=== PATIENT | male | born 1950 | race Caucasian/White ===

== ENCOUNTER 2017-08-26 16:06 | Emergency (ER) | payer OTHER, MEDICARE ==
[~2017-08-26] VITALS: Ht 190.5 cm; Wt 115.0 kg
[~2017-08-26 16:06] MED LIST: ALFU10TA2 PO; ALPR0.5T3 PO; AMIT10TA6 PO; AMLO10TA2 PO; ATOR20TA15 PO; BACL10TA PO; CARV6.252 PO; ENAL20TA PO; FLUO60TA PO; FURO20TA PO; HYDR-3580 PO; IPRAAER INH; IPRASOL INH; LORA10TA PO; LOSA50TA PO; MULTTAB67 PO; OMEP40CA2 PO; POTA10TA8 PO; RANI150C PO; VIAG100T PO
[2017-08-26 16:09] VITALS: BP 177/80; PULSE 94; RESP 13; TEMP 97.9; O2SAT 97
[2017-08-26] MEDS ORDERED: SODIUM CHLOR 0.9% 1000 ML INJ 1,000 ML IV SCH (16:38)
[2017-08-26 16:40] VITALS: RESP 17; O2SAT 99
[2017-08-26] MEDS ORDERED: TETANUS/DIPHTHERIA TOXOID ADULT 0.5 ML VIAL IM ONE (16:45)
[2017-08-26] MEDS ORDERED: LIDOCAINE HCL 1% 50 ML VIAL INFIL ONE (16:45)
[2017-08-26 17:20] LABS: AUTOMATED NEUTROPHIL # 6.8 TH/MM3 (1.8-7.7); BASOPHIL % 0.5 % (0.0-2.0); EOSINOPHIL # 0.4 TH/MM3 (0-0.4); EOSINOPHIL % 4.1 % (0.0-4.0); HEMATOCRIT 39.1 % (39.0-51.0); HEMO FLAGS DIFF FINAL; LYMPHOCYTE # 1.3 TH/MM3 (1.0-4.8); MEAN CELL VOLUME 80.1 FL (80.0-100.0); MEAN CORPUSCULAR HEMOGLOBIN 26.9 PG (27.0-34.0); MEAN CORPUSCULAR HGB CONC 33.6 % (32.0-36.0); MONO % 8.1 % (0.0-8.0); NEUT % 73.3 % (16.0-70.0); PLATELET COUNT 229 TH/MM3 (150-450); RED BLOOD COUNT 4.89 MIL/MM3 (4.50-5.90); RED CELL DISTRIBUTION WIDTH 14.1 % (11.6-17.2); WHITE BLOOD COUNT 9.3 TH/MM3 (4.0-11.0)
[2017-08-26 17:34] LABS: ANION GAP 9 MEQ/L (5-15); BICARBONATE 26.3 MEQ/L (21.0-32.0); BLOOD UREA NITROGEN 11 MG/DL (7-18); CHLORIDE 104 MEQ/L (98-107); GLOMERULAR FILTRATION RATE 71 ML/MIN (>89); POTASSIUM 3.3 MEQ/L (3.5-5.1); SODIUM (NA) 139 MEQ/L (136-145)
[2017-08-26 17:39] LABS: CREATINE KINASE 115 U/L (39-308)
--- NOTE | 2017-08-26 17:42 | PD ---
HPI Chief Complaint: Fall Time Seen by Provider: 16:21 Travel History International Travel<30 days: No Contact w/Intl Traveler<30days: No Traveled to known affect area: No History of Present Illness HPI 67-year-old male that presents to the ED for evaluation of fall. Patient is a little unclear but from what he tells me he possibly tripped over lower on his rash. Patient hit his head but he is not sure if he passed out. He does not believe so. He was able to get help from a neighbor and she needed assistance to get up. showed up and he had a lot of blood. He does have a cut to the left side of his face. Per patient and the family members he's been somewhat "groggy". He denies any blood thinner use. No chest pain. No arm pain other than the left wrist. He does have an abrasion to the left hand. He denies any hip pain. He does state having some right knee pain. Per family he was somewhat "wobbly "when he was walking but he was able to walks somewhat. He was brought here by private vehicle. He denies any blurry vision or double vision. He states that his pain especially on the left side of the face is 6 out of 10. No allergies to medication. Has not taken anything for this. History of heart disease and hypertension. PFSH Past Medical History Arthritis: Yes Asthma: No Atrial Fibrillation: Yes Anxiety: Yes Depression: Yes Heart Rhythm Problems: Yes (HX AFIB S/P ABLATION 10/2011) Cancer: Yes (SKIN CANCER NOSE) Cardiac Catheterization: Yes Cardiovascular Problems: Yes (CABG) High Cholesterol: Yes Chest Pain: No Congestive Heart Failure: Yes COPD: Yes Coronary Artery Disease: Yes Diabetes: No Diminished Hearing: No Endocrine: No Gastrointestinal Disorders: Yes (GERD, PEPTIC ULCERS, ESOPHAGEAL DILATION) GERD: Yes Genitourinary: Yes (ENLARGED PROSTATE) Hepatitis: No Hiatal Hernia: No Hypertension: Yes Immune Disorder: No Implanted Vascular Access Dvce: Yes Medical other: Yes ("CHOKING iSSUE") Musculoskeletal: Yes (HX LUMBAR NARROWING REQUIRING SURGERY, LEFT SHOULDER, ARTHRITIS) Neurologic: Yes (NEUROPATHY FEET) Psychiatric: Yes (DEPRESSION/ANXIETY) Reproductive: No Respiratory: Yes (COPD, HX PLEURAL EFFUSION) Migraines: Yes Sleep Apnea: Yes Thyroid Disease: No Ulcer: Yes Tetanus Vaccination: < 5 Years Influenza Vaccination: Yes PNEUMOCCOCAL Vaccine (Year): 2 Past Surgical History Abdominal Surgery: No AICD: No Body Medical Devices: CHEST FROM RIS sternal plate implants in right shoulder Cardiac Surgery: Yes (CABGX2, CARDIOVERSION OCT, 2011) Coronary Artery Bypass Graft: Yes (2012) Ear Surgery: No Endocrine Surgery: No Genitourinary Surgery: No Gynecologic Surgery: No Joint Replacement: Yes (TOTAL RIGHT HIP,TOTAL LEFT KNEE) Oral Surgery: Yes (T&A) Pacemaker: No Thoracic Surgery: No Other Surgery: Yes (SINUS REPAIR, CANCER REMOVED FROM NOSE) Social History Alcohol Use: Yes (occ) Tobacco Use: No (quit) Substance Use: No Allergies-Medications (Allergen,Severity, Reaction): Coded Allergies: No Known Allergies (Unverified , 08/26/17) Reported Meds & Prescriptions Reported Meds & Active Scripts Active Bactroban Topical (Mupirocin) 22 Gm Cream 1 Applic TOPICAL BID Diclofenac Sodium DR (Diclofenac Sodium) 75 Mg Tabdr 75 Mg PO BID PRN Lortab (Hydrocodone-Acetaminophen) 7.5-325 Mg Tab 1 Tab PO Q6H PRN Hydrocodone-Acetaminophen 7.5-325 mg Tab 1 Tab PO Q4H PRN Reported Duoneb (Ipratropium-Albuterol Neb) 0.5-2.5 Mg/3 Ml Neb 1 Nebule INH DIRECTED PRN Combivent Respimat Inh (Ipratropium-Albuterol Inh) 20-100 Jail/Act Aero 1 Puff INH DIRECTED PRN Multiple Vitamin 1 Tab 1 Tab PO DAILY Losartan (Losartan Potassium) 50 Mg Tab 50 Mg PO BID Carvedilol 6.25 Mg Tab 3.125 Mg PO BID Alprazolam 0.5 Mg Tab 0.5 Mg PO HS Omeprazole 40 Mg Cap 40 Mg PO AC DINNER Amitriptyline (Amitriptyline HCl) 10 Mg Tab 10 Mg PO HS Alfuzosin ER 24 HR 10 Mg Tab 10 Mg PO DAILY Fluoxetine (Fluoxetine HCl) 60 Mg Tab 60 Mg PO DAILY Furosemide 20 Mg Tab 20 Mg PO BID Ranitidine (Ranitidine HCl) 150 Mg Cap 150 Mg PO HS Loratadine 10 Mg Tab 10 Mg PO DAILY Enalapril (Enalapril Maleate) 20 Mg Tab 40 Mg PO BID Atorvastatin (Atorvastatin Calcium) 20 Mg Tab 20 Mg PO HS Amlodipine (Amlodipine Besylate) 10 Mg Tab 10 Mg PO DAILY Viagra (Sildenafil Citrate) 100 Mg Tab 100 Mg PO DAILY PRN Review of Systems Except as stated in HPI: all other systems reviewed are Neg Physical Exam Narrative GENERAL: SKIN: Warm and dry. Patient has a superficial 2 cm laceration to the left forehead just lateral to the eyebrow. HEAD: Atraumatic. Normocephalic. EYES: Pupils equal and round 4 mm reactive to light and accommodation. No scleral icterus. No injection or drainage. ENT: No nasal bleeding or discharge. Mucous membranes pink and moist. Tongue is midline. No uvula deviation. NECK: Trachea midline. No JVD. CARDIOVASCULAR: Regular rate and rhythm. RESPIRATORY: No accessory muscle use. Clear to auscultation. Breath sounds equal bilaterally. GASTROINTESTINAL: Abdomen soft, non-tender, nondistended. Hepatic and splenic margins not palpable. MUSCULOSKELETAL: Extremities without clubbing, cyanosis, or edema. No obvious deformities. Full range of motion of the upper and lower extremities bilaterally. Patient does have a superficial abrasion to the dorsal aspect of the left hand with some bruising to the wrist and pain with range of motion of the wrist as well as slight abrasion and bruise noted to the right knee. Able to move the knee and the entire lower extremity with no pain. Pupils pulses bilaterally. No obvious hip pain. No lumbar, thoracic, cervical spine tenderness to palpation. NEUROLOGICAL: Awake and alert and oriented 4. No obvious cranial nerve deficits. Motor grossly within normal limits. Five out of 5 muscle strength in the arms and legs. Normal speech. PSYCHIATRIC: Appropriate mood and affect; insight and judgment normal. Data Data Last Documented VS Vital Signs Date Time Temp Pulse Resp B/P (MAP) Pulse Ox O2 Delivery O2 Flow Rate FiO2 08/26/17 16:40 17 99 Room Air 08/26/17 16:09 97.9 94 Orders Orders Electrocardiogram (08/26/17 16:31) Complete Blood Count With Diff (08/26/17 16:31) Basic Metabolic Panel (Bmp) (08/26/17 16:31) Ckmb (Isoenzyme) Profile (08/26/17 16:31) Troponin I (08/26/17 16:31) Urinalysis - C+S If Indicated (08/26/17 16:31) Magnesium (Mg) (08/26/17 16:31) Chest, Single Ap (08/26/17 16:31) Ct Brain W/O Iv Contrast(Rout) (08/26/17 16:31) Iv Access Insert/Monitor (08/26/17 16:31) Ecg Monitoring (08/26/17 16:31) Oximetry (08/26/17 16:31) Wound Care (08/26/17 16:31) Ct Cerv Spine W/O Contrast (08/26/17 16:31) Ct Facial Bones W/O Iv Cont (08/26/17 16:31) Tetanus/Diphtheria Tox Adult (Tetanus/Di (08/26/17 16:45) Wound Care (08/26/17 16:31) Lidocaine 1% Inj (50 Ml) (Xylocaine 1% I (08/26/17 16:45) Knee, Complete (4vws) (08/26/17 ) Pelvis, Ap Only (Routine) (08/26/17 ) Sodium Chlor 0.9% 1000 Ml Inj (Ns 1000 M (08/26/17 16:38) Wrist, Complete ([id number]) (08/26/17 ) Coag Profile (08/26/17 17:37) CKMB (08/26/17 16:50) CKMB% (08/26/17 16:50) Ketorolac Inj (Toradol Inj) (08/26/17 18:30) Morphine Inj (Morphine Inj) (08/26/17 18:30) Ondansetron Inj (Zofran Inj) (08/26/17 18:30) Labs Laboratory Tests Test 08/26/17 16:50 08/26/17 18:00 White Blood Count 9.3 TH/MM3 Red Blood Count 4.89 MIL/MM3 Hemoglobin 13.1 GM/DL Hematocrit 39.1 % Mean Corpuscular Volume 80.1 FL Mean Corpuscular Hemoglobin 26.9 PG Mean Corpuscular Hemoglobin Concent 33.6 % Red Cell Distribution Width 14.1 % Platelet Count 229 TH/MM3 Mean Platelet Volume 8.0 FL Neutrophils (%) (Auto) 73.3 % Lymphocytes (%) (Auto) 14.0 % Monocytes (%) (Auto) 8.1 % Eosinophils (%) (Auto) 4.1 % Basophils (%) (Auto) 0.5 % Neutrophils # (Auto) 6.8 TH/MM3 Lymphocytes # (Auto) 1.3 TH/MM3 Monocytes # (Auto) 0.8 TH/MM3 Eosinophils # (Auto) 0.4 TH/MM3 Basophils # (Auto) 0.0 TH/MM3 CBC Comment DIFF FINAL Differential Comment Blood Urea Nitrogen 11 MG/DL Creatinine 1.04 MG/DL Random Glucose 180 MG/DL Calcium Level 8.1 MG/DL Magnesium Level 2.0 MG/DL Sodium Level 139 MEQ/L Potassium Level 3.3 MEQ/L Chloride Level 104 MEQ/L Carbon Dioxide Level 26.3 MEQ/L Anion Gap 9 MEQ/L Estimat Glomerular Filtration Rate 71 ML/MIN Total Creatine Kinase 115 U/L Creatine Kinase MB 1.7 NG/ML Troponin I LESS THAN 0.02 NG/ML MDM Medical Decision Making Medical Screen Exam Complete: Yes Emergency Medical Condition: Yes Medical Record Reviewed: Yes Interpretation(s) CBC & BMP Diagram 08/26/17 16:50 Calcium Level 8.1 L, Magnesium Level 2.[address] 08/26/17 1631 Signed Impressions: Service Date/Time: Saturday, August 26, 2017 17:44 - CONCLUSION: 1. Old lacunar infarct in the right basal ganglia. No acute intracranial abnormality identified. Balaji Jeffries MD Chest X-Ray 08/26/17 1631 Signed Impressions: Service Date/Time: Saturday, August 26, 2017 17:09 - CONCLUSION: Chronic appearing interstitial changes. Stable compared to prior exam. Balaji Jeffries MD Pelvis X-Ray 08/26/17 0000 Signed Impressions: Service Date/Time: Saturday, August 26, 2017 17:15 - CONCLUSION: Intact pelvis. Boris Flores MD Knee X-Ray 08/26/17 0000 Signed Impressions: Service Date/Time: Saturday, August 26, 2017 17:11 - CONCLUSION: No fracture or other acute abnormality seen of the right knee. Chronic findings as above. Boris Flores MD CT face showed no acute bony injury CT cervical showed no acute bony injury Differential Diagnosis Fall versus syncope versus head injury versus laceration versus fracture versus ICH versus concussion Narrative Course 67-year-old male that presents to the ED for evaluation of fall. Patient was properly examined and was found to have signs and symptoms consistent with fall. Labs and imaging were ordered. I do recommend suturing for the laceration to the left forehead. Patient agrees with this plan. Please refer to my note. Labs and imaging showed no sign of acute disease. Patient was reassured. Case was discussed in my attending Dr. Justin who evaluated the patient with me and agrees with plan. Patient likely has a concussion. Patient will be given pain management as well as antibiotic ointment. Told to get sutures removed in 7 days. Close follow with PCP. He was told things to look out for and if they do happened to come back to the ED immediately. He agrees and understands. See ED worsening symptoms. Follow with PCP. Procedures Procedure Narrative LACERATION LOCATION: left forehead LENGTH: 2 cm NUMBER OF STITCHES/ANGELIQUE: 5 sutures REPAIR: The area of the laceration was prepped with Betadine and sterilely draped. The laceration was infiltrated with 1% Xylocaine. The wound was copiously irrigated and explored without evidence of foreign body, tendon injury or neurovascular injury. The wound was closed using 5-0 Ethilone. This was a 1 layer repair. A sterile dressing was applied. The patient was advised to keep the dressing clean and dry. Patient tolerated the procedure well. Diagnosis Primary Impression: Head injury Qualified Codes: S09.90XA - Unspecified injury of head, initial encounter Additional Impressions: Laceration of head Qualified Codes: S01.112A - Laceration without foreign body of left eyelid and periocular area, initial encounter Fall Qualified Codes: W19.XXXA - Unspecified fall, initial encounter Skin abrasion Multiple contusions Patient Instructions: General Instructions, Narcotic given in the ED Additional Instructions: Wound care daily with soap and water. You can apply bandaid if needed. Neosporyn or OTC antibiotic ointment to area as needed twice a day for at least 2 weeks to help with scarring and prevent infection. Meoderma OTC for scarring if needed. Avoid sun exposure for 2 months as the sun could make scar darker and more noticeable. Get sutures removed in 5-7 days. See ED if worst. Take medications as prescribed. Follow-up with PCP. See ED for any worsening symptoms. Do not drink or drive while taking pain medication. Apply ice or heat as needed for pain Med/Other Pt SpecificInfo: Prescription(s) given Scripts Mupirocin Topical (Bactroban Topical) 22 Gm Cream 1 APPLIC TOPICAL BID for Mgmt Bacterial Infection, #1 TUBE 0 Refills Prov: Eulogio Justin MD 08/26/[address] (Diclofenac Sodium DR) 75 Mg Tabdr 75 MG PO BID Y for PAIN SCALE 1 TO 10, #30 TAB 0 Refills Prov: Eulogio Justin MD 08/26/17 Hydrocodone-Acetaminophen (Lortab) 7.5-325 Mg Tab 1 TAB PO Q6H Y for PAIN, #15 TAB 0 Refills Prov: Eulogio Justin MD 08/26/17 Disposition: 01 DISCHARGE HOME Condition: Chris Guerrero Aug 26, 2017 17:42
[2017-08-26 17:50] LABS: CKMB 1.7 NG/ML (0.5-3.6)
--- NOTE | 2017-08-26 17:53 | RADRPT ---
EXAM DATE/TIME: 08/26/2017 17:09 [facility] COMPARISON: SHOULDER LEFT LTD (2VWS), October 25, 2016, 11:36. INDICATIONS : Shortness of breath and right sided pain from fall. MEDICAL HISTORY : None. SURGICAL HISTORY : None. ENCOUNTER: Initial ACUITY: 1 day PAIN SCORE: 2/10 LOCATION: Right chest FINDINGS: The heart is at the limits of normal in size. The patient is post median sternotomy. There chronic in terstitial changes within the pulmonary parenchyma. The lungs are otherwise clear. There are bilateral shoulder arthroplasties. The bony structures are otherwise intact. CONCLUSION: Chronic appearing interstitial changes. Stable compared to prior exam. Balaji Jeffries MD on August 26, 2017 at 17:50 Board Certified Radiologist. This report was verified electronically.
--- NOTE | 2017-08-26 18:01 | RADRPT ---
EXAM DATE/TIME: 08/26/2017 17:11 [facility] COMPARISON: No previous studies available for comparison. INDICATIONS : Pain from fall. MEDICAL HISTORY : None. SURGICAL HISTORY : Bursa removal. ENCOUNTER: Initial ACUITY: 1 day PAIN SCORE: 5/10 LOCATION: Right knee. FINDINGS: No fracture or subluxation seen of the right knee. No significant joint effusion. Moderate tricompartment osteoarthritis. Subcentimeter osteochondral bodies are seen posterior to the notch. I believe there is an approximately 1 cm osteochondroma medially of the distal femoral metaphy sis. There is severe enthesopathic changes of the extensor mechanism. There is also osteoarthritis of the proximal tib-fib joint. There is an area of chronic bony bridging between the proximal fibula an d tibia that may be posttraumatic. CONCLUSION: No fracture or other acute abnormality seen of the right knee. Chronic findings as above. Boris Flores MD on August 26, 2017 at 17:58 Board Certified Radiologist. This report was verified electronically.
--- NOTE | 2017-08-26 18:02 | RADRPT ---
EXAM DATE/TIME: 08/26/2017 17:15 [facility] COMPARISON: No previous studies available for comparison. INDICATIONS : Pain from fall. MEDICAL HISTORY : None. SURGICAL HISTORY : Hip replacement, right. ENCOUNTER: Initial ACUITY: 1 day PAIN SCORE: 2/10 LOCATION: Right hip. FINDINGS: The bony pelvis is intact and has normal morphology. No subluxation of either hip. Previous arthropla sty on the right. There is moderate osteoarthritis on the left. CONCLUSION: Intact pelvis. Boris Flores MD on August 26, 2017 at 18:00 Board Certified Radiologist. This report was verified electronically.
--- NOTE | 2017-08-26 18:03 | RADRPT ---
EXAM DATE/TIME: 08/26/2017 17:20 [facility] COMPARISON: No previous studies available for comparison. INDICATIONS : Pain from fall. MEDICAL HISTORY : None. SURGICAL HISTORY : None. ENCOUNTER: Initial ACUITY: 1 day PAIN SCORE: 4/10 LOCATION: Left wrist. FINDINGS: No acute fracture or subluxation seen of the left wrist. 5 mm chronic ossific fragments seen dorsal to the carpus, probably related to old trauma of the triqu etrum. There is mild to moderate radiocarpal, triscaphe and first carpometacarpal osteoarthritis. CONCLUSION: No acute fracture or other acute abnormality of the left wrist. Chronic findings as above. Boris Flores MD on August 26, 2017 at 18:01 Board Certified Radiologist. This report was verified electronically.
--- NOTE | 2017-08-26 18:03 | RADRPT ---
EXAM DATE/TIME: 08/26/2017 17:44 [facility] COMPARISON: CT BRAIN W/O CONTRAST, November 19, 2014, 13:44. INDICATIONS : Fall laceration to head. RADIATION DOSE: 37.71 CTDIvol (mGy) MEDICAL HISTORY : Cardiovascular disease. Congestive heart failure. Hypertension.Afib; skin cancer SURGICAL HISTORY : CABG ENCOUNTER: Initial ACUITY: 1 day PAIN SCALE: 7/10 LOCATION: Left cranial TECHNIQUE: Multiple contiguous axial images were obtained of the head. Using automated exposure control and adj ustment of the mA and/or kV according to patient size, radiation dose was kept as low as reasonably a chievable to obtain optimal diagnostic quality images. DICOM format image data is available electro nically for review and comparison. FINDINGS: CEREBRUM: There is a punctate old lacunar infarct in the right basal ganglia. This has been stable since prior exam dated 11/19/14. No acute intracranial hemorrhage is seen. No mass lesion is identified. No extra -axial hemorrhage is present. The ventricles are normal in size and configuration. POSTERIOR FOSSA: The cerebellum and brainstem are intact. The 4th ventricle is midline. The cerebellopontine angle i s unremarkable. EXTRACRANIAL: The visualized portion of the orbits is intact. SKULL: The calvaria is intact. No evidence of skull fracture. CONCLUSION: 1. Old lacunar infarct in the right basal ganglia. No acute intracranial abnormality identified. Balaji Jeffries MD on August 26, 2017 at 18:00 Board Certified Radiologist. This report was verified electronically.
--- NOTE | 2017-08-26 18:10 | RADRPT ---
EXAM DATE/TIME: 08/26/2017 17:44 [facility] COMPARISON: CT BRAIN W/O CONTRAST, November 19, 2014, 13:44. INDICATIONS : Fall. RADIATION DOSE: 21.13 CTDIvol (mGy) MEDICAL HISTORY : Cardiovascular disease. Congestive heart failure. Afib, skin cancer SURGICAL HISTORY : CABG ENCOUNTER: Initial ACUITY: 1 day PAIN SCALE: 7/10 LOCATION: neck TECHNIQUE: Volumetric scanning of the cervical spine was performed. Multiplanar reconstructions in the sagittal, coronal and oblique axial planes were performed. Using automated exposure control and adjustment o f the mA and/or kV according to patient size, radiation dose was kept as low as reasonably achievable to obtain optimal diagnostic quality images. DICOM format image data is available electronically f or review and comparison. FINDINGS: Thin section axial imaging of the cervical spine was performed. Sagittal and coronal imaging demonstrate adequate alignment of the vertebral bodies. There are modera te degenerative changes throughout the cervical spine. Note is made of ossification of the posterior longitudinal ligament extending from C2 down to the superior endplate of C5. No acute fracture is edward ntified. C1/2: There are mild degenerative changes in the atlantodens joint. No fracture is seen. C2/3: There is ossification of the posterior longitudinal ligament. This abuts the ventral thecal sac and c an be seen touching the ventral aspect of the cord. There is mild flattening of the cord. The foramin a are adequate. C3/4: There is ossification of the posterior longitudinal ligament which effaces the ventral thecal sac and abuts the ventral aspect of the cord. There is mild flattening of the ventral aspect of the cord. C4/5: The thecal space is adequate. The foramina are adequate. There is mild facet arthritis bilaterally. C5/6: There is a degenerated disc with mild osteophytic ridging. There is facet arthritis bilaterally. The thecal space and foramina are adequate. C6/7: There is a severely degenerated disc. There is diffuse osteophytic ridging from the vertebral endplat es. This effaces the ventral thecal sac and abuts the ventral aspect of the cord. There is mild maurice ening of the central aspect of the cord. The foramina appear adequate. C7/T1: There is a degenerated disc. The thecal space and foramina appear adequate. CONCLUSION: 1. Advanced degenerative changes throughout the cervical spine as above. No acute fracture identified . 2. Note is made of ossification of the posterior longitudinal ligament from C2 down to the superior e ndplate of C4. Balaji Jeffries MD on August 26, 2017 at 18:02 Board Certified Radiologist. This report was verified electronically.
--- NOTE | 2017-08-26 18:12 | RADRPT ---
EXAM DATE/TIME: 08/26/2017 17:44 [facility] COMPARISON: CT BRAIN W/O CONTRAST, November 19, 2014, 13:44. INDICATIONS : Fall. RADIATION DOSE: 62.34 CTDIvol (mGy) MEDICAL HISTORY : Cardiovascular disease. Congestive heart failure. afib, skin cancer SURGICAL HISTORY : CABG ENCOUNTER: Initial ACUITY: 1 day PAIN SCORE: 7/10 LOCATION: Left cranial TECHNIQUE: Volumetric scanning of the facial bones was performed. Using automated exposure control and adjustme nt of the mA and/or kV according to patient size, radiation dose was kept as low as reasonably achiev able to obtain optimal diagnostic quality images. DICOM format image data is available electronicall y for review and comparison. FINDINGS: ORBITS: The orbital and infraorbital osseous structures are intact. The retroconal structures have a normal configuration. No radiopaque foreign bodies are seen. NASAL BONE: The nasal bone and maxillary spine are intact ZYGOMATIC ARCHES: Symmetric without evidence of fracture. SINUSES: The maxillary, ethmoid and frontal sinuses are intact. No air-fluid levels seen. NASAL CAVITY: The nasal septum is intact and midline. The lacrimal ducts are intact. SOFT TISSUES: No radiopaque foreign bodies seen. No soft-tissue swelling is seen. INTRACRANIAL: No intracranial air seen. CRIBIFORM PLATE: Grossly intact. CONCLUSION: 1. There is gas within the soft tissues along the lateral margin of the left orbit. No acute fracture is identified. Balaji Jeffries MD on August 26, 2017 at 18:08 Board Certified Radiologist. This report was verified electronically.
[2017-08-26] MEDS ORDERED: ONDANSETRON HCL 4 MG/2 ML VIAL IV PUSH ONE (18:30)
[2017-08-26] MEDS ORDERED: MORPHINE SULFATE 4 MG/ML INJ IV PUSH ONE (18:30)
[2017-08-26] MEDS ORDERED: KETOROLAC TROMETHAMINE 30 MG/ML (IVP) VIAL IV PUSH ONE (18:30)
[2017-08-26] MEDS ORDERED: HYDR-3534 PO (18:35)
[2017-08-26] MEDS ORDERED: DICL75TA PO (18:35)
[2017-08-26] MEDS ORDERED: MUPI2%T TOPICAL (18:35)
[2017-08-26 18:46] VITALS: RESP 17
[2017-08-26 18:56] LABS: APTT (PATIENT) 24.2 SEC (24.3-30.1); PROTHROMBIN TIME - PATIENT 10.7 SEC (9.8-11.6)
[2017-08-26 19:00] VITALS: BP 152/77; TEMP 97.9
[2017-08-26 19:49] LABS: BLOOD, URINE NEG (NEG); COMMENT (UR) CULT NOT INDICATED; CULTURE IF INDICATED CULT NOT INDICATED; GLUCOSE,URINE 150 mg/dL (NEG); HYALINE CAST, URINE 1 /lpf (RARE); KETONE, URINE NEG (NEG); NITRITE,URINE NEG (NEG); PH, URINE 6.5 (5.0-8.5); URINE COLOR YELLOW (YELLW/STRAW)
--- NOTE | 2017-08-26 21:35 | EKG ---
Date Performed: 08/26/2017 Time Performed: 16:48:32 PTAGE: 67 years EKG: Sinus rhythm NONSPECIFIC ST & T-WAVE ABNORMALITY BORDERLINE ECG PREVIOUS TRACING : 10/08/2016 09.52 No significant change from previous tracing noted. DOCTOR: Con Purvis Interpretating Date/Time 08/26/2017 21:32:51
== END 2017-08-26 19:00 | disposition home or self-care (01) ==
LOC: NEPC 16:06
DX: S09.90XA Unspecified injury of head, initial encounter (principal); S01.112A Laceration without foreign body of left eyelid and periocular area, initial encounter; S60.512A Abrasion of left hand, initial encounter; S60.212A Contusion of left wrist, initial encounter; S80.01XA Contusion of right knee, initial encounter; I10 Essential (primary) hypertension; E78.00 Pure hypercholesterolemia, unspecified; R94.31 Abnormal electrocardiogram [ECG] [EKG]; W01.0XXA Fall on same level from slipping, tripping and stumbling without subsequent striking against object, initial encounter; Z23 Encounter for immunization; Z87.39 Personal history of other diseases of the musculoskeletal system and connective tissue; Z86.79 Personal history of other diseases of the circulatory system; Z86.59 Personal history of other mental and behavioral disorders; Z85.828 Personal history of other malignant neoplasm of skin; Z87.09 Personal history of other diseases of the respiratory system; Z87.19 Personal history of other diseases of the digestive system; Z87.438 Personal history of other diseases of male genital organs; Z86.69 Personal history of other diseases of the nervous system and sense organs
CPT/HCPCS: 12011; 70450; 70486; 71010; 72125; 72170; 73110; 73564; 80048; 81001; 82550; 82552; 83735; 84484; 85025; 85610; 85730; 93005; 96361; 96374; 96375; 99285; J1885; J2270; J2405; J7030

== ENCOUNTER 2017-09-02 12:57 | Emergency (ER) | payer OTHER, MEDICARE ==
[~2017-09-02] VITALS: Ht 190.5 cm; Wt 118.0 kg
[~2017-09-02 12:57] MED LIST changes: -BACL10TA PO; +DICL75TA PO; +HYDR-3534 PO; +MUPI2%T TOPICAL; -POTA10TA8 PO
[2017-09-02 13:01] VITALS: BP 184/87; PULSE 68; RESP 14; TEMP 97.9; O2SAT 96
--- NOTE | 2017-09-02 13:07 | PD ---
HPI Chief Complaint: Wound/Suture/Staple Re-Check Time Seen by Provider: 13:07 Travel History International Travel<30 days: No Contact w/Intl Traveler<30days: No Traveled to known affect area: No History of Present Illness HPI Patient here for suture removal from left face laceration. Patient states he was here one week ago. He has no complaints. He has no known drug allergies. PFSH Past Medical History Arthritis: Yes Asthma: No Atrial Fibrillation: Yes Anxiety: Yes Depression: Yes Heart Rhythm Problems: Yes (HX AFIB S/P ABLATION 10/2011) Cancer: Yes (SKIN CANCER NOSE) Cardiac Catheterization: Yes Cardiovascular Problems: Yes (CABG) High Cholesterol: Yes Chest Pain: No Congestive Heart Failure: Yes COPD: Yes Coronary Artery Disease: Yes Diabetes: No Diminished Hearing: No Endocrine: No Gastrointestinal Disorders: Yes (GERD, PEPTIC ULCERS, ESOPHAGEAL DILATION) GERD: Yes Genitourinary: Yes (ENLARGED PROSTATE) Hepatitis: No Hiatal Hernia: No Hypertension: Yes Immune Disorder: No Implanted Vascular Access Dvce: Yes Musculoskeletal: Yes (HX LUMBAR NARROWING REQUIRING SURGERY, LEFT SHOULDER, ARTHRITIS) Neurologic: Yes (NEUROPATHY FEET) Psychiatric: Yes (DEPRESSION/ANXIETY) Reproductive: No Respiratory: Yes (COPD, HX PLEURAL EFFUSION) Migraines: Yes Sleep Apnea: Yes Thyroid Disease: No Ulcer: Yes PNEUMOCCOCAL Vaccine (Year): 2 Past Surgical History Abdominal Surgery: No AICD: No Body Medical Devices: CHEST FROM [facility] sternal plate implants in right shoulder Cardiac Surgery: Yes (CABGX2, CARDIOVERSION OCT, 2011) Coronary Artery Bypass Graft: Yes (2012) Ear Surgery: No Endocrine Surgery: No Genitourinary Surgery: No Gynecologic Surgery: No Joint Replacement: Yes (TOTAL RIGHT HIP,TOTAL LEFT KNEE) Oral Surgery: Yes (T&A) Pacemaker: No Thoracic Surgery: No Other Surgery: Yes (SINUS REPAIR, CANCER REMOVED FROM NOSE) Social History Alcohol Use: Yes (occ) Tobacco Use: No (quit) Substance Use: No Allergies-Medications (Allergen,Severity, Reaction): Coded Allergies: No Known Allergies (Unverified , 09/02/17) Reported Meds & Prescriptions Reported Meds & Active Scripts Active Bactroban Topical (Mupirocin) 22 Gm Cream 1 Applic TOPICAL BID Diclofenac Sodium DR (Diclofenac Sodium) 75 Mg Tabdr 75 Mg PO BID PRN Lortab (Hydrocodone-Acetaminophen) 7.5-325 Mg Tab 1 Tab PO Q6H PRN Hydrocodone-Acetaminophen 7.5-325 mg Tab 1 Tab PO Q4H PRN Reported Duoneb (Ipratropium-Albuterol Neb) 0.5-2.5 Mg/3 Ml Neb 1 Nebule INH DIRECTED PRN Combivent Respimat Inh (Ipratropium-Albuterol Inh) 20-100 Fdc/Act Aero 1 Puff INH DIRECTED PRN Multiple Vitamin 1 Tab 1 Tab PO DAILY Losartan (Losartan Potassium) 50 Mg Tab 50 Mg PO BID Carvedilol 6.25 Mg Tab 3.125 Mg PO BID Alprazolam 0.5 Mg Tab 0.5 Mg PO HS Omeprazole 40 Mg Cap 40 Mg PO AC DINNER Amitriptyline (Amitriptyline HCl) 10 Mg Tab 10 Mg PO HS Alfuzosin ER 24 HR 10 Mg Tab 10 Mg PO DAILY Fluoxetine (Fluoxetine HCl) 60 Mg Tab 60 Mg PO DAILY Furosemide 20 Mg Tab 20 Mg PO BID Ranitidine (Ranitidine HCl) 150 Mg Cap 150 Mg PO HS Loratadine 10 Mg Tab 10 Mg PO DAILY Enalapril (Enalapril Maleate) 20 Mg Tab 40 Mg PO BID Atorvastatin (Atorvastatin Calcium) 20 Mg Tab 20 Mg PO HS Amlodipine (Amlodipine Besylate) 10 Mg Tab 10 Mg PO DAILY Viagra (Sildenafil Citrate) 100 Mg Tab 100 Mg PO DAILY PRN Review of Systems Except as stated in HPI: all other systems reviewed are Neg General / Constitutional: No: Fever Eyes: No: Visual changes HENT: No: Headaches Cardiovascular: No: Chest Pain or Discomfort Respiratory: No: Shortness of Breath Gastrointestinal: No: Abdominal Pain Genitourinary: No: Dysuria Musculoskeletal: No: Pain Skin: No Rash Neurologic: No: Weakness Psychiatric: No: Depression Endocrine: No: Polydipsia Hematologic/Lymphatic: No: Easy Bruising Physical Exam Narrative GENERAL: Patient appears in no acute distress. SKIN: Warm and dry. Patient has a well-healed laceration to the left lateral forehead. There is no sign of wound dehiscence or cellulitis. [address] HEAD: Atraumatic. Normocephalic. EYES: Pupils equal and round. No scleral icterus. No injection or drainage. ENT: No nasal bleeding or discharge. Mucous membranes pink and moist. NECK: Trachea midline. No JVD. CARDIOVASCULAR: Regular rate and rhythm. RESPIRATORY: No accessory muscle use. MUSCULOSKELETAL: Extremities without clubbing, cyanosis, or edema. No obvious deformities. NEUROLOGICAL: Awake and alert. No obvious cranial nerve deficits. Motor grossly within normal limits. Five out of 5 muscle strength in the arms and legs. Normal speech. PSYCHIATRIC: Appropriate mood and affect; insight and judgment normal. Data Data Last Documented VS Vital Signs Date Time Temp Pulse Resp B/P (MAP) Pulse Ox O2 Delivery O2 Flow Rate FiO2 09/02/17 13:01 97.9 68 14 184/87 (119) 96 MDM Medical Decision Making Medical Screen Exam Complete: Yes Emergency Medical Condition: Yes Differential Diagnosis Fall. Laceration. Suture removal. Narrative Course Suture removal without difficulty. No further medical treatment warranted. Follow with primary care provider as needed. Diagnosis Primary Impression: Encounter for removal of sutures Referrals: [facility] Patient Instructions: General Instructions Additional Instructions: Suture removal without difficulty. No further medical treatment warranted. Follow with primary care provider as needed. Med/Other Pt SpecificInfo: No Change to Meds Disposition: 01 DISCHARGE HOME Condition: Stable Adrian Pierre Sep 02, 2017 13:07
== END 2017-09-02 13:21 | disposition home or self-care (01) ==
LOC: NEPK 12:57
DX: Z48.02 Encounter for removal of sutures (principal)
CPT/HCPCS: 99281

== ENCOUNTER 2018-04-30 18:52 | Emergency (ER) | payer OTHER ==
[~2018-04-30] VITALS: Ht 190.5 cm; Wt 115.5 kg
[2018-04-30 19:30] VITALS: BP 169/80; PULSE 64; RESP 20; TEMP 98.2; O2SAT 97
[2018-04-30] MEDS ORDERED: SODIUM CHLOR 0.9% 1000 ML INJ 1,000 ML IV SCH (20:15)
[2018-04-30] MEDS ORDERED: METOCLOPRAMIDE HCL 10 MG/2 ML VIAL IV PUSH ONE (20:15)
[2018-04-30] MEDS ORDERED: MORPHINE SULFATE 4 MG/ML INJ IV PUSH ONE (20:15)
[2018-04-30] MEDS ORDERED: ceFAZolin 2 GM PREMIX 50 ML IV ONE (20:15)
--- NOTE | 2018-04-30 20:18 | PD ---
HPI Chief Complaint: Fall Time Seen by Provider: 19:55 Travel History International Travel<30 days: No Contact w/Intl Traveler<30days: No Traveled to known affect area: No History of Present Illness HPI The patient is a 68 year old male who presents to the [facility] emergency department with a history of losing his balance while playing basketball prior to arrival, striking his face and right hand. He reports that he was playing basketball on a driveway that was uneven. The patient denies having any loss of consciousness. The patient reports having pain in his right cheek. He is unsure whether he has any neck pain. He reports that he has a history of arthritis. He reports that the pain in his right hand overrides any other pain that he is experiencing in any other location. He is right-hand dominant. The patient denies having any numbness or tingling to his extremities. He denies having any weakness of his extremities. He denies having any chest pain, chest pressure, or shortness of breath. On review of systems otherwise, he denies having any known recent fevers, cough or congestion, abdominal pain, vomiting, urinary symptoms, or other neurologic symptoms. The patient reports that he has been having some loose stools over the last softer than usual stool 1-2 times per day. [facility] Past Medical History Narrative Medical The patient's past medical history is significant for osteoarthritis, atrial fibrillation status post ablation, history of coronary artery disease status post coronary artery bypass grafting, spinal stenosis, history of peptic ulcer disease, anxiety disorder, depression, hypertension, pneumonia. Arthritis: Yes Asthma: No Atrial Fibrillation: Yes Anxiety: Yes Depression: Yes Heart Rhythm Problems: Yes (HX AFIB S/P ABLATION 10/2011) Cancer: Yes (SKIN CANCER NOSE) Cardiac Catheterization: Yes Cardiovascular Problems: Yes (CABGx2, HTN, A-fib) High Cholesterol: Yes Chest Pain: No Congestive Heart Failure: Yes COPD: Yes Coronary Artery Disease: Yes Diabetes: No Diminished Hearing: No Endocrine: No Gastrointestinal Disorders: Yes (GERD, PEPTIC ULCERS, ESOPHAGEAL DILATION) GERD: Yes Genitourinary: Yes (ENLARGED PROSTATE) Hepatitis: No Hiatal Hernia: No Hypertension: Yes Immune Disorder: No Implanted Vascular Access Dvce: Yes Medical other: Yes ("CHOKING iSSUE") Musculoskeletal: Yes (HX LUMBAR NARROWING REQUIRING SURGERY, LEFT SHOULDER, ARTHRITIS) Neurologic: Yes (NEUROPATHY FEET) Psychiatric: Yes (DEPRESSION/ANXIETY) Reproductive: No Respiratory: Yes (COPD) Migraines: Yes Sleep Apnea: Yes Thyroid Disease: No Ulcer: Yes Tetanus Vaccination: < 5 Years PNEUMOCCOCAL Vaccine (Year): 2 Past Surgical History Narrative Surgical The patient's past surgical history is significant for right hip surgery, left knee surgery, coronary artery bypass grafting, cardiac ablation, left shoulder replacement, cancer removal from his nose, sinus surgery. Abdominal Surgery: No AICD: No Body Medical Devices: CHEST FROM [facility] sternal plate implants in right shoulder Cardiac Surgery: Yes (CABGX2, CARDIOVERSION OCT, 2011) Coronary Artery Bypass Graft: Yes (2012) Ear Surgery: No Endocrine Surgery: No Genitourinary Surgery: No Gynecologic Surgery: No Joint Replacement: Yes (TOTAL RIGHT HIP,TOTAL LEFT KNEE) Oral Surgery: Yes (T&A) Pacemaker: No Thoracic Surgery: No Other Surgery: Yes (SINUS REPAIR, CANCER REMOVED FROM NOSE) Social History Alcohol Use: Yes (occ) Tobacco Use: No (quit) Substance Use: No Allergies-Medications (Allergen,Severity, Reaction): Coded Allergies: No Known Allergies (Unverified Adverse Reaction, Unknown, 04/30/18) Reported Meds & Prescriptions Reported Meds & Active Scripts Active Hydrocodone-Acetaminophen 5-325 mg Tab 1 Tab PO Q6H PRN Keflex (Cephalexin) 500 Mg Capsule 500 Mg PO Q6H Bactroban Topical (Mupirocin) 22 Gm Cream 1 Applic TOPICAL BID Diclofenac Sodium DR (Diclofenac Sodium) 75 Mg Tabdr 75 Mg PO BID PRN Lortab (Hydrocodone-Acetaminophen) 7.5-325 Mg Tab 1 Tab PO Q6H PRN Hydrocodone-Acetaminophen 7.5-325 mg Tab 1 Tab PO Q4H PRN Reported Duoneb (Ipratropium-Albuterol Neb) 0.5-2.5 Mg/3 Ml Neb 1 Nebule INH DIRECTED PRN Combivent Respimat Inh (Ipratropium-Albuterol Inh) 20-100 Fdc/Act Aero 1 Puff INH DIRECTED PRN Multiple Vitamin 1 Tab 1 Tab PO DAILY Losartan (Losartan Potassium) 50 Mg Tab 50 Mg PO BID Carvedilol 6.25 Mg Tab 3.125 Mg PO BID Alprazolam 0.5 Mg Tab 0.5 Mg PO HS Omeprazole 40 Mg Cap 40 Mg PO AC DINNER Amitriptyline (Amitriptyline HCl) 10 Mg Tab 10 Mg PO HS Alfuzosin ER 24 HR 10 Mg Tab 10 Mg PO DAILY Fluoxetine (Fluoxetine HCl) 60 Mg Tab 60 Mg PO DAILY Furosemide 20 Mg Tab 20 Mg PO BID Ranitidine (Ranitidine HCl) 150 Mg Cap 150 Mg PO HS Loratadine 10 Mg Tab 10 Mg PO DAILY Enalapril (Enalapril Maleate) 20 Mg Tab 40 Mg PO BID Atorvastatin (Atorvastatin Calcium) 20 Mg Tab 20 Mg PO HS Amlodipine (Amlodipine Besylate) 10 Mg Tab 10 Mg PO DAILY Viagra (Sildenafil Citrate) 100 Mg Tab 100 Mg PO DAILY PRN Review of Systems Except as stated in HPI: all other systems reviewed are Neg General / Constitutional: No: Fever Eyes: No: Visual changes HENT: Positive: Headaches, No: Neck Stiffness Cardiovascular: No: Chest Pain or Discomfort Respiratory: No: Shortness of Breath Gastrointestinal: Positive: Diarrhea, Changes in Bowel Habits, No: Nausea, Vomiting, Abdominal Pain, Hematemesis, Hematochezia, Indigestion, Loss of Appetite Genitourinary: No: Dysuria Musculoskeletal: Positive: Myalgias, Arthralgias, Limited ROM, Edema, Pain Skin: No Rash Neurologic: Positive: Headache, No: Weakness, Focal Abnormalities, Change in Mentation, Slurred Speech, Sensory Disturbance Psychiatric: No: Depression Endocrine: No: Polydipsia Hematologic/Lymphatic: No: Easy Bruising Physical Exam Narrative General: The patient is a well-developed well-nourished male in no acute distress. Head and Neck exam: Head is normocephalic, evidence of trauma to the right side of the face, with an abrasion on the right side of the upper lip, swelling to the right cheek without any crepitus on palpation. The patient reports having facial bone tenderness along the right maxilla. No increased facial bone mobility noted on palpation. Eyes: EOMI, pupils are equal round and reactive to light. Nose: Midline septum with pink mucous membranes Mouth: Dentition unremarkable. Moist mucus membranes. Posterior oropharynx is not erythematous. No tonsillar hypertrophy. Uvula midline. Airway patent. Neck: No spinous process tenderness to palpation. No step-off or crepitus. No erythema or ecchymosis. No tracheal deviation. The trachea appears midline. Cardiovascular: Regular rate and rhythm without murmurs, gallops, or rubs. No pulse deficit to the extremities on simultaneous auscultation and palpation of his radial artery. Lungs: Clear to auscultation bilaterally. No wheezes, rhonchi, or rales. No chest wall tenderness to palpation. No erythema or ecchymosis noted. No crepitus , step off, or flail segment noted. Abdomen: Soft, without tenderness to palpation in all 4 quadrants of the abdomen. No guarding, rebound, or rigidity. No erythema or ecchymosis noted. Extremities: No instability or pain noted on pelvic rock. No clubbing, cyanosis , or edema. 2+ pulses in all 4 extremities. No extremity tenderness or deformity noted on palpation or passive/ active range of motion, except the area of interest, the right hand. The patient has tenderness on palpation along the distal fourth metacarpal, fifth metacarpal, distally, 2 lacerations are noted involving the right fifth digit. Along the volar surface of the hand the patient is noted to have a laceration to fifth digit that is approximately 3 and half centimeters in greatest dimension. Along the volar aspect of the fifth digit there is a second laceration involving the area between the DIP and PIP joint. Patient has decreased range of motion. The patient has intact sensation over the finger pad. Patient has less than 3 second capillary refill. Back: No spinous process tenderness to palpation. No stepoff or crepitus noted. No costovertebral angle tenderness to palpation. No erythema or ecchymosis. Neurologic Exam: Cranial nerves 2-12 were intact on exam. Strength is 5/5 in all 4 extremities. No sensory deficits noted. Skin Exam: No rash noted. Intact skin that is warm and dry. Data Data Last Documented VS Vital Signs Date Time Temp Pulse Resp B/P (MAP) Pulse Ox O2 Delivery O2 Flow Rate FiO2 04/30/18 23:39 64 18 166/70 (102) 97 Room Air 04/30/18 19:30 98.2 Orders Orders Hand, Complete ([id number]) (04/30/18 20:08) Ice/Cold Pack (04/30/18 20:08) Electrocardiogram (04/30/18 20:08) Complete Blood Count With Diff (04/30/18 20:08) Comprehensive Metabolic Panel (04/30/18 20:08) Creatine Kinase (Cpk) (04/30/18 20:08) Troponin I (04/30/18 20:08) Prothrombin Time / Inr (Pt) (04/30/18 20:08) Act Partial Throm Time (Ptt) (04/30/18 20:08) Lipase (04/30/18 20:08) Magnesium (Mg) (04/30/18 20:08) Chest, Single Ap (04/30/18 20:08) Ct Brain W/O Iv Contrast(Rout) (04/30/18 20:08) Iv Access Insert/Monitor (04/30/18 20:08) Ecg Monitoring (04/30/18 20:08) Oximetry (04/30/18 20:08) Apply Cervical Collar (04/30/18 20:08) Ct Cerv Spine W/O Contrast (04/30/18 ) Ct Facial Bones W/O Iv Cont (04/30/18 ) Cefazolin 2 Gm Premix (Ancef 2 Gm Premix (04/30/18 20:15) Morphine Inj (Morphine Inj) (04/30/18 20:15) Metoclopramide Inj (Reglan Inj) (04/30/18 20:15) Sodium Chlor 0.9% 1000 Ml Inj (Ns 1000 M (04/30/18 20:15) Lidocaine 1% Inj (Xylocaine 1% Inj) (04/30/18 20:45) Yait-Odt-Caxvhy (Booster) Inj (Boostrix (04/30/18 20:45) Bupivacaine Pf 0.5% Inj (Marcaine Pf 0.5 (04/30/18 21:00) Finger ([id number]) (04/30/18 22:13) Splint Or Brace Apply/Monitor (04/30/18 22:19) [employer] Request For Service (04/30/18 22:19) Ed Discharge Order (04/30/18 23:04) Fiberglass Splint Forearm Adul (04/30/18 ) Labs Laboratory Tests Test 04/30/18 20:23 White Blood Count 9.8 TH/MM3 Red Blood Count 4.82 MIL/MM3 Hemoglobin 14.5 GM/DL Hematocrit 42.2 % Mean Corpuscular Volume 87.6 FL Mean Corpuscular Hemoglobin 30.0 PG Mean Corpuscular Hemoglobin Concent 34.3 % Red Cell Distribution Width 12.8 % Platelet Count 232 TH/MM3 Mean Platelet Volume 8.0 FL Neutrophils (%) (Auto) 72.8 % Lymphocytes (%) (Auto) 16.4 % Monocytes (%) (Auto) 7.1 % Eosinophils (%) (Auto) 3.2 % Basophils (%) (Auto) 0.5 % Neutrophils # (Auto) 7.1 TH/MM3 Lymphocytes # (Auto) 1.6 TH/MM3 Monocytes # (Auto) 0.7 TH/MM3 Eosinophils # (Auto) 0.3 TH/MM3 Basophils # (Auto) 0.0 TH/MM3 CBC Comment DIFF FINAL Differential Comment Prothrombin Time 10.1 SEC Prothromb Time International Ratio 1.0 RATIO Activated Partial Thromboplast Time 24.0 SEC Blood Urea Nitrogen 19 MG/DL Creatinine 1.45 MG/DL Random Glucose 139 MG/DL Total Protein 7.1 GM/DL Albumin 3.8 GM/DL Calcium Level 8.4 MG/DL Magnesium Level 1.8 MG/DL Alkaline Phosphatase 91 U/L Aspartate Amino Transf (AST/SGOT) 31 U/L Alanine Aminotransferase (ALT/SGPT) 38 U/L Total Bilirubin 0.5 MG/DL Sodium Level 141 MEQ/L Potassium Level 4.2 MEQ/L Chloride Level 105 MEQ/L Carbon Dioxide Level 24.7 MEQ/L Anion Gap 11 MEQ/L Estimat Glomerular Filtration Rate 48 ML/MIN Total Creatine Kinase 89 U/L Troponin I LESS THAN 0.02 NG/ML Lipase 85 U/L MDM Medical Decision Making Medical Screen Exam Complete: Yes Emergency Medical Condition: Yes Medical Record Reviewed: Yes Differential Diagnosis Intracranial hemorrhage, versus concussion, versus facial bone fracture, versus facial contusion, versus cervical spine trauma, versus right hand laceration, versus open fracture, versus fracture dislocation Narrative Course During the course of the patient's emergency department visit, the patient's history, examination, and differential diagnosis were reviewed with the patient. The patient was placed on a classroom monitor with oximetry and frequent blood pressure monitoring. The patient had IV access obtained and blood work sent for analysis. Patient had a EKG done on arrival that shows a sinus rhythm heart rate of 60, QRS duration 101 ms, QTC 438 ms. T waves are inverted in V1, V2, aVL no acute ST segment elevation. The patient was initially provided morphine for pain, Reglan for nausea. The patient was given an update to his tetanus, Ancef 2 g IV. Lynn, the physician business development assistant was consulted regarding irrigation, repair. I assisted with the evaluation after the patient had a digital block done and the patient' s finger was relocated. The patient's laboratory studies were reviewed and remarkable for a white count of 9.8, hemoglobin 14.5, platelets 232 with neutrophils 72.8, CMP is remarkable for BUN of 19, creatinine 1.45, glucose 139, calcium 8.4, cardiac enzymes within normal limits, lipase within normal limits. PT 10.1, PTT 24 Radiology studies were reviewed and remarkable for Last Impressions Finger X-Ray 04/30/182212 Signed Impressions: CONCLUSION: Satisfactory reduction of the previously noted joint dislocation at the fifth P IP joint. Head CT 04/30/182007 Signed Impressions: CONCLUSION: 1. No acute infarct, acute hemorrhage, midline shift or extra-axial fluid monica ections. 2. Old lacunar infarcts within the bilateral basal ganglia. Hand X-Ray 04/30/182007 Signed Impressions: CONCLUSION: 1. Complete dorsal dislocation of the right fifth middle phalanx in relation t o the proximal phalanx with tiny dorsal avulsion fracture involving the proxima l aspect of the right fifth middle phalanx. 2. Mild diffuse arthritic changes involving the right hand. Chest X-Ray 04/30/182007 Signed Impressions: CONCLUSION: No acute cardiopulmonary disease. Maxillofacial CT 04/30/18 0000 Signed Impressions: CONCLUSION: 1. No facial bone fractures noted. 2. Minimal mucosal thickening is noted within the left maxillary sinus. Cervical Spine CT 04/30/18 Signed Impressions: CONCLUSION: 1. No acute fracture or prevertebral soft tissue swelling. 2. No significant change in the extensive degenerative arthritis, multilevel s kiko stenoses, bilateral foraminal narrowing and ossification of the posterior longitudinal ligament compared to 08/26/2017. 3. Stable scoliosis of the cervical spine. The patient's case was discussed with Dr. Pruitt, the hand surgeon stonemason supervisor. After reviewing the patient's history, examination findings, x-ray results she was agreeable with the plan for the patient to be discharged home to follow-up with her. She recommended that the patient be placed in a splint and follow-up with him later this week. She recommended that he call the office in the morning to schedule an appointment. The prescription drug monitoring database in [place] was reviewed for the patient's prior narcotic use history at 10:35 PM. The patient was last prescribed hydrocodone in July 2017, therefore a prescription for hydrocodone was given for this patient's pain related to this acute injury. The patient is resting comfortably and feels better, is alert and in no distress. The patient's results and examination findings were discussed with the patient. The repeat examination is unremarkable and benign. The history, exam, diagnostic testing, and current condition do not suggest any significant pathology to warrant further testing, continued ED treatment, admission, or surgical evaluation at this point. The vital signs have been stable. The patient does not have uncontrollable pain, intractable vomiting, or other significant symptoms. The patient's condition is stable and appropriate for discharge. The patient will pursue further outpatient evaluation with a primary care physician or other designated or consulting physician as indicated in the discharge instructions. The patient is instructed to report back to the emergency department immediately for reexamination in the mean time if he develops any new or worsening signs or symptoms. The patient expressed understanding and was agreeable with this plan. Physician Communication Physician Communication The patient's case including history, pertinent physical examination findings, and laboratory studies were discussed with Dr. Pruitt, the hand surgeon at 22:12 , regarding the patient's hand injury. She reports that that the patient be placed in a dorsal block splint. She recommended that the patient call her office in the morning for follow-up appointment to be reexamined later this week. Diagnosis Primary Impression: Facial contusion Qualified Codes: S00.83XA - Contusion of other part of head, initial encounter Additional Impressions: Finger fracture, right Qualified Codes: S62.624B - Displaced fracture of middle phalanx of right ring finger, initial encounter for open fracture Finger dislocation Qualified Codes: S63.259A - Unspecified dislocation of unspecified finger, initial encounter Referrals: Sierra Pruitt MD call for appointment Patient Instructions: Facial Contusion (ED), Finger Dislocation (ED), Finger Fracture (ED), General Instructions Med/Other Pt SpecificInfo: Prescription(s) given Scripts Hydrocodone-Acetaminophen (Hydrocodone-Acetaminophen) 5-325 mg Tab 1 TAB PO Q6H Y for PAIN, #12 TAB 0 Refills Prov: Paz Pizano MD 04/30/18 Cephalexin (Keflex) 500 Mg Capsule 500 MG PO Q6H for Infection, #28 CAP 0 Refills Prov: Paz Pizano MD 04/30/18 Disposition: 01 DISCHARGE HOME Condition: Stable Paz Pizano MD Apr 30, 2018 20:18
[2018-04-30 20:37] VITALS: RESP 18; O2SAT 98
[2018-04-30] MEDS ORDERED: LIDOCAINE HCL 1% 30 ML VIAL INFIL ONE (20:45)
[2018-04-30] MEDS ORDERED: DIPHTH/TETANUS/ACEL PERTUSSIS (BOOSTER) 0.5 ML VIAL/PFS IM ONE (20:45)
--- NOTE | 2018-04-30 20:47 | RADRPT ---
EXAM DATE: 04/30/2018 8:44 PM EDT AGE/SEX: 68 years / Male INDICATIONS: Trauma. Fall. CLINICAL DATA: This is the patient's initial encounter. Patient reports that signs and symptoms have been present for 1 day and indicates a pain score of 2/10. MEDICAL/SURGICAL HISTORY: Congestive heart failure. Hypertension. Gastroesophageal reflux disease . CABG. RADIATION DOSE: 35.60 CTDI (mGy) [place] [facility] [place]26[place]. . TECHNIQUE: CT of the head without contrast. Using automated exposure control and adjustment of the mA and/or kV according to patient size, radiation dose was kept as low as reasonably achievable to ob tain optimal diagnostic quality images. FINDINGS: Cerebrum: The ventricles are normal for age. No evidence of midline shift, mass lesion, hemorrhage or acute infarction. No extraaxial fluid collections are seen. Old lacunar infarcts are again noted within the bilateral basal ganglia. Posterior Fossa: The cerebellum and brainstem are intact. The 4th ventricle is midline. The cerebe llopontine angle is unremarkable. Extracranial: The visualized portion of the orbits is intact. Skull: The calvaria is intact. No evidence of skull fracture. CONCLUSION: 1. No acute infarct, acute hemorrhage, midline shift or extra-axial fluid collections. 2. Old lacunar infarcts within the bilateral basal ganglia. Electronically signed by: Derrick Madison MD 04/30/2018 8:46 PM EDT
--- NOTE | 2018-04-30 20:59 | RADRPT ---
EXAM DATE: 04/30/2018 8:46 PM EDT AGE/SEX: 68 years / Male INDICATIONS: Trauma. Fall. CLINICAL DATA: This is the patient's initial encounter. Patient reports that signs and symptoms have been present for 1 day and indicates a pain score of 1/10. MEDICAL/SURGICAL HISTORY: Congestive heart failure. Gastroesophageal reflux disease. Hyperten nanette. CABG. RADIATION DOSE: 20.36 CTDI (mGy) COMPARISON: [facility] [place] CERVICAL SPINE W/O CONTRAST, 08/26/2017. . TECHNIQUE: Contiguous axial images were obtained using helical multirow detector technique. The vol umetric data was post-processed with multiplanar reconstruction in oblique axial, sagittal, and coron al planes. Using automated exposure control and adjustment of the mA and/or kV according to patient s ize, radiation dose was kept as low as reasonably achievable to obtain optimal diagnostic quality da ges. FINDINGS: There is no evidence of acute fracture or prevertebral soft tissue swelling. Degenerative c hanges are again noted throughout the cervical spine and are unchanged compared to 08/26/2017. Note is again made of ossification of the posterior longitudinal ligament. Multilevel spinal stenoses and bi lateral foraminal narrowing are again noted and stable. Apical emphysematous changes are again noted. CONCLUSION: 1. No acute fracture or prevertebral soft tissue swelling. 2. No significant change in the extensive degenerative arthritis, multilevel spinal stenoses, bilate ral foraminal narrowing and ossification of the posterior longitudinal ligament compared to 08/26/2017 . 3. Stable scoliosis of the cervical spine. Electronically signed by: Derrick Madison MD 04/30/2018 8:58 PM EDT
[2018-04-30] MEDS ORDERED: BUPIVACAINE HCL PF 0.5% 30 ML VIAL INFIL ONE (21:00)
--- NOTE | 2018-04-30 21:01 | RADRPT ---
EXAM DATE: 04/30/2018 8:49 PM EDT AGE/SEX: 68 years / Male INDICATIONS: Trauma. Fall. CLINICAL DATA: This is the patient's initial encounter. Patient reports that signs and symptoms have been present for 1 day and indicates a pain score of 4/10. MEDICAL/SURGICAL HISTORY: Congestive heart failure. Gastroesophageal reflux disease. Hyperten nanette. CABG. RADIATION DOSE: 62.66 CTDI (mGy) [place] [facility] [place] 08/26/2017. . TECHNIQUE: Contiguous images in the axial and coronal planes were obtained using helical multirow de tector technique. Using automated exposure control and adjustment of the mA and/or kV according to p atient size, radiation dose was kept as low as reasonably achievable to obtain optimal diagnostic amador lity images. FINDINGS: Orbits: The orbital and infraorbital osseous structures are intact. The retroconal structures have a normal configuration. No radiopaque foreign bodies are seen. Nasal Bone: The nasal bone and maxillary spine are intact. Zygomatic Arches: Symmetric without evidence of fracture. Sinuses: Minimal mucosal thickening is noted within the left maxillary sinus. The ethmoid, and front al sinuses are intact. No air-fluid levels seen. Nasal Cavity: The nasal septum is intact and midline. The lacrimal ducts are intact. Soft Tissues: No radiopaque foreign bodies seen. No soft-tissue swelling is seen. Intracranial: No intracranial air seen. Cribriform Plate: Grossly intact. CONCLUSION: 1. No facial bone fractures noted. 2. Minimal mucosal thickening is noted within the left maxillary sinus. Electronically signed by: Derrick Madison MD 04/30/2018 9:00 PM EDT
[2018-04-30 21:03] LABS: AUTOMATED NEUTROPHIL # 7.1 TH/MM3 (1.8-7.7); BASOPHIL % 0.5 % (0.0-2.0); EOSINOPHIL # 0.3 TH/MM3 (0-0.4); EOSINOPHIL % 3.2 % (0.0-4.0); HEMATOCRIT 42.2 % (39.0-51.0); HEMOGLOBIN 14.5 GM/DL (13.0-17.0); LYMPH % 16.4 % (9.0-44.0); LYMPHOCYTE # 1.6 TH/MM3 (1.0-4.8); MEAN CELL VOLUME 87.6 FL (80.0-100.0); MEAN CORPUSCULAR HGB CONC 34.3 % (32.0-36.0); MONO % 7.1 % (0.0-8.0); MONOCYTE # 0.7 TH/MM3 (0-0.9); NEUT % 72.8 % (16.0-70.0); PLATELET COUNT 232 TH/MM3 (150-450); RED BLOOD COUNT 4.82 MIL/MM3 (4.50-5.90); RED CELL DISTRIBUTION WIDTH 12.8 % (11.6-17.2); WHITE BLOOD COUNT 9.8 TH/MM3 (4.0-11.0)
[2018-04-30 21:14] LABS: PROTHROMBIN TIME - PATIENT 10.1 SEC (9.8-11.6)
--- NOTE | 2018-04-30 21:18 | RADRPT ---
EXAM DATE: 04/30/2018 9:04 PM EDT AGE/SEX: 68 years / Male INDICATIONS: Pain in right side of chest from fall. CLINICAL DATA: This is the patient's initial encounter. Patient reports that signs and symptoms have been present for 1 day and indicates a pain score of 1/10. MEDICAL/SURGICAL HISTORY: . Atrial fibrillation. CABG. COMPARISON: [facility], CHEST SINGLE AP, 08/26/2017. . FINDINGS: A single AP view of the chest demonstrates the lungs to be symmetrically aerated without evidence of mass, infiltrate or effusion. The cardiomediastinal contours are unremarkable. Median sternotomy wir es are stable. Bilateral shoulder replacements are unchanged. CONCLUSION: No acute cardiopulmonary disease. Electronically signed by: Derrick Madison MD 04/30/2018 9:16 PM EDT
[2018-04-30 21:25] LABS: ALBUMIN 3.8 GM/DL (3.4-5.0); ALT (GPT) 38 U/L (12-78); AST (GOT) 31 U/L (15-37); BICARBONATE 24.7 MEQ/L (21.0-32.0); BLOOD UREA NITROGEN 19 MG/DL (7-18); CALCIUM 8.4 MG/DL (8.5-10.1); CHLORIDE 105 MEQ/L (98-107); CREATININE 1.45 MG/DL (0.60-1.30); GLOMERULAR FILTRATION RATE 48 ML/MIN (>89); GLUCOSE,RANDOM 139 MG/DL (74-106); MAGNESIUM 1.8 MG/DL (1.5-2.5); SODIUM (NA) 141 MEQ/L (136-145)
--- NOTE | 2018-04-30 21:30 | RADRPT ---
EXAM DATE: 04/30/2018 9:03 PM EDT AGE/SEX: 68 years / Male INDICATIONS: Pain from fall in lateral side of right hand. CLINICAL DATA: This is the patient's initial encounter. Patient reports that signs and symptoms have been present for 1 day and indicates a pain score of 9/10. MEDICAL/SURGICAL HISTORY: None. None. COMPARISON: No prior [place] exams available for comparison. FINDINGS: There is complete dorsal dislocation of the right fifth middle phalanx in relation to the proximal ph alanx. There is a tiny avulsion fracture involving the dorsal proximal aspect of the right fifth midd le phalanx. Mild arthritic changes are noted involving the metacarpal and interphalangeal joints of t he right hand as well as the first carpometacarpal joint and scaphotrapezium and scaphotrapezoid join ts. An old ununited fracture involving the base of the right fifth metacarpal is noted. CONCLUSION: 1. Complete dorsal dislocation of the right fifth middle phalanx in relation to the proximal phalanx with tiny dorsal avulsion fracture involving the proximal aspect of the right fifth middle phalanx. 2. Mild diffuse arthritic changes involving the right hand. Electronically signed by: Derrick Madison MD 04/30/2018 9:28 PM EDT
[2018-04-30 21:35] LABS: ALKALINE PHOSPHATASE 91 U/L (45-117); TOTAL BILIRUBIN ADULT 0.5 MG/DL (0.2-1.0); TOTAL PROTEIN 7.1 GM/DL (6.4-8.2); TROPONIN I LESS THAN 0.02 NG/ML (0.02-0.05)
--- NOTE | 2018-04-30 22:18 | PD ---
Physical Exam Date Seen by Provider: Apr 30, 2018 Time Seen by Provider: 22:14 Data Data Last Documented VS Vital Signs Date Time Temp Pulse Resp B/P (MAP) Pulse Ox O2 Delivery O2 Flow Rate FiO2 04/30/18 20:37 18 98 Room Air 04/30/18 19:30 98.2 64 169/80 (109) Orders Orders Hand, Complete ([id number]) (04/30/18 20:08) Ice/Cold Pack (04/30/18 20:08) Electrocardiogram (04/30/18 20:08) Complete Blood Count With Diff (04/30/18 20:08) Comprehensive Metabolic Panel (04/30/18 20:08) Creatine Kinase (Cpk) (04/30/18 20:08) Troponin I (04/30/18 20:08) Prothrombin Time / Inr (Pt) (04/30/18 20:08) Act Partial Throm Time (Ptt) (04/30/18 20:08) Lipase (04/30/18 20:08) Magnesium (Mg) (04/30/18 20:08) Chest, Single Ap (04/30/18 20:08) Ct Brain W/O Iv Contrast(Rout) (04/30/18 20:08) Iv Access Insert/Monitor (04/30/18 20:08) Ecg Monitoring (04/30/18 20:08) Oximetry (04/30/18 20:08) Apply Cervical Collar (04/30/18 20:08) Ct Cerv Spine W/O Contrast (04/30/18 ) Ct Facial Bones W/O Iv Cont (04/30/18 ) Cefazolin 2 Gm Premix (Ancef 2 Gm Premix (04/30/18 20:15) Morphine Inj (Morphine Inj) (04/30/18 20:15) Metoclopramide Inj (Reglan Inj) (04/30/18 20:15) Sodium Chlor 0.9% 1000 Ml Inj (Ns 1000 M (04/30/18 20:15) Lidocaine 1% Inj (Xylocaine 1% Inj) (04/30/18 20:45) [id number] (Booster) Inj (Boostrix (04/30/18 20:45) Bupivacaine Pf 0.5% Inj (Marcaine Pf 0.5 (04/30/18 21:00) Finger (Amc8tuv) (04/30/18 22:13) Splint Or Brace Apply/Monitor (04/30/18 22:19) [employer] Request For Service (04/30/18 22:19) Ed Discharge Order (04/30/18 23:04) Labs Laboratory Tests Test 04/30/18 20:23 White Blood Count 9.8 TH/MM3 Red Blood Count 4.82 MIL/MM3 Hemoglobin 14.5 GM/DL Hematocrit 42.2 % Mean Corpuscular Volume 87.6 FL Mean Corpuscular Hemoglobin 30.0 PG Mean Corpuscular Hemoglobin Concent 34.3 % Red Cell Distribution Width 12.8 % Platelet Count 232 TH/MM3 Mean Platelet Volume 8.0 FL Neutrophils (%) (Auto) 72.8 % Lymphocytes (%) (Auto) 16.4 % Monocytes (%) (Auto) 7.1 % Eosinophils (%) (Auto) 3.2 % Basophils (%) (Auto) 0.5 % Neutrophils # (Auto) 7.1 TH/MM3 Lymphocytes # (Auto) 1.6 TH/MM3 Monocytes # (Auto) 0.7 TH/MM3 Eosinophils # (Auto) 0.3 TH/MM3 Basophils # (Auto) 0.0 TH/MM3 CBC Comment DIFF FINAL Differential Comment Prothrombin Time 10.1 SEC Prothromb Time International Ratio 1.0 RATIO Activated Partial Thromboplast Time 24.0 SEC Blood Urea Nitrogen 19 MG/DL Creatinine 1.45 MG/DL Random Glucose 139 MG/DL Total Protein 7.1 GM/DL Albumin 3.8 GM/DL Calcium Level 8.4 MG/DL Magnesium Level 1.8 MG/DL Alkaline Phosphatase 91 U/L Aspartate Amino Transf (AST/SGOT) 31 U/L Alanine Aminotransferase (ALT/SGPT) 38 U/L Total Bilirubin 0.5 MG/DL Sodium Level 141 MEQ/L Potassium Level 4.2 MEQ/L Chloride Level 105 MEQ/L Carbon Dioxide Level 24.7 MEQ/L Anion Gap 11 MEQ/L Estimat Glomerular Filtration Rate 48 ML/MIN Total Creatine Kinase 89 U/L Troponin I LESS THAN 0.02 NG/ML Lipase 85 U/L [facility] Supervised Visit with MIKAEL: No Narrative Course I was asked to evaluate this patient's right hand lacerations. The patient was initially seen by Dr. Pizano. Please see her note for full H& P. On my exam there is a 3 cm laceration of the palmar aspect of the distal fifth finger. The distal head of the proximal phalanx is visible in the wound. There is a stellate 4.5 cm laceration in the hyperthenar eminence. Patient has cap refill less than 2 seconds on each digit. Sensation is intact to light touch distally on each digit. Reduction was performed. Please see my procedure note for details.. Laceration repair was performed. Please see my procedure note for details. Dr. Pizano retains care of this patient. Please see her note for disposition. Procedures Procedure Narrative Reduction right fifth middle phalanx dislocation: Digital block was performed with a 50-50 mix of 0.5% Marcaine and 1% lidocaine. Adequate anesthesia was obtained. Distal traction with medial distraction was applied. A click was felt and heard as the joint reduced into better anatomical position. LACERATION LOCATION: [place] aspect right fifth finger LENGTH: 3 cm NUMBER OF STITCHES/ANGELIQUE: 7 REPAIR: The area of the laceration was prepped with Betadine and sterilely draped. The laceration was infiltrated with 1% lidocaine and 0.5 Marcaine, 50: 50 ratio. The wound was copiously irrigated and explored without evidence of foreign body, tendon injury or neurovascular injury. The wound was closed using 5-0 nylon. This was a single layer repair. A sterile dressing was applied. The patient was advised to keep the dressing clean and dry. Patient tolerated the procedure well. LACERATION This laceration was performed by Rustam Salgado, MS IV, under my supervision. LOCATION: Hyperthenar eminence right hand LENGTH: 4.5 cm daily NUMBER OF STITCHES/ANGELIQUE: 9 REPAIR: The area of the laceration was prepped with Betadine and sterilely draped. The laceration was infiltrated with A 50: 50 mix of 1% lidocaine and 0.5% t Marcaine. The wound was copiously irrigated and explored without evidence of foreign body, tendon injury or neurovascular injury. The wound was closed using 4-0 Prolene. This was a single layer repair. A sterile dressing was applied. The patient was advised to keep the dressing clean and dry. Patient tolerated the procedure well. A total of 12 cc of 50: 50 mix of lidocaine and Marcaine was used during all procedures. Scripts Hydrocodone-Acetaminophen (Hydrocodone-Acetaminophen) 5-325 mg Tab 1 TAB PO Q6H Y for PAIN, #12 TAB 0 Refills Prov: Paz Pizano MD 04/30/18 Cephalexin (Keflex) 500 Mg Capsule 500 MG PO Q6H for Infection, #28 CAP 0 Refills Prov: Paz Pizano MD 04/30/18 Lynn Sandoval Apr 30, 2018 22:18
[2018-04-30] MEDS ORDERED: HYDR-3516 PO (22:35)
[2018-04-30] MEDS ORDERED: CEPH-460 PO (22:35)
--- NOTE | 2018-04-30 23:13 | RADRPT ---
EXAM DATE: 04/30/2018 11:00 PM EDT AGE/SEX: 68 years / Male INDICATIONS: Post reduction of the right fifth digit. CLINICAL DATA: This is the patient's subsequent encounter. Patient reports that signs and symptoms h ave been present for 1 day and indicates a pain score of 0/10. MEDICAL/SURGICAL HISTORY: . A-Fib CABG. COMPAR[place] [facility] [place] RIGHT COMPLETE ([id number]), 04/30/2018. . FINDINGS: The previously noted joint dislocation involving the fifth PIP joint has been reduced. There is good alignment of the bony structures. There are degenerative changes at the PIP and DIP joints. The bony structures are grossly intact. CONCLUSION: Satisfactory reduction of the previously noted joint dislocation at the fifth PIP joint. Electronically signed by: Fernando Son MD 04/30/2018 11:12 PM EDT
[2018-04-30 23:39] VITALS: BP 166/70; PULSE 64; RESP 18; O2SAT 97
--- NOTE | 2018-05-01 09:56 | EKG ---
Date Performed: 04/30/2018 Time Performed: 21:27:47 PTAGE: 68 years EKG: Sinus rhythm ST DEVIATION AND MODERATE T-WAVE ABNORMALITY, CONSIDER ANTEROLATERAL ISCHEMIA Compared to previous t racing nonspecific T wave changes are now present ABNORMAL ECG PREVIOUS TRACING : 08/26/2017 16.48 DOCTOR: Go Dyer Interpretating Date/Time 05/01/2018 09:54:10
== END 2018-04-30 23:42 | disposition home or self-care (01) ==
LOC: NEPC 18:52
DX: S00.83XA Contusion of other part of head, initial encounter (principal); S62.616B Displaced fracture of proximal phalanx of right little finger, initial encounter for open fracture; S63.256A Unspecified dislocation of right little finger, initial encounter; R11.0 Nausea; R94.31 Abnormal electrocardiogram [ECG] [EKG]; W01.0XXA Fall on same level from slipping, tripping and stumbling without subsequent striking against object, initial encounter; Y93.67 Activity, basketball; Y92.89 Other specified places as the place of occurrence of the external cause; Z23 Encounter for immunization; I11.0 Hypertensive heart disease with heart failure; I50.9 Heart failure, unspecified; I48.91 Unspecified atrial fibrillation; I25.10 Atherosclerotic heart disease of native coronary artery without angina pectoris; E78.00 Pure hypercholesterolemia, unspecified; J44.9 Chronic obstructive pulmonary disease, unspecified; F32.9 Major depressive disorder, single episode, unspecified; Z95.1 Presence of aortocoronary bypass graft; Z85.828 Personal history of other malignant neoplasm of skin; Z79.899 Other long term (current) drug therapy
CPT/HCPCS: 12002; 26725; 70450; 70486; 71045; 72125; 73130; 73140; 80053; 82550; 83690; 83735; 84484; 85025; 85610; 85730; 90471; 90715; 93005; 96365; 96375; 99285; J0690; J2270; J2765; J7030